=== PATIENT | female | born 1980 | race Two or more races ===

== ENCOUNTER 2018-01-08 13:16 | Inpatient (IN) | payer OTHER ==
[~2018-01-08] VITALS: Ht 167.6 cm; Wt 86.2 kg
[2018-01-29] MEDS ORDERED: PRENATAL TABLE1 EAC1 PO (00:39)
== END 2018-01-31 13:14 | DRG 775 ==
LOC: OB/GYN 01-28 13:15 → LDR 01-29 00:32 → OB/GYN 01-29 02:34
PROC: 10E0XZZ Delivery of Products of Conception, External Approach (ICD-10-PCS; principal; 2018-01-29)
PROC: 0HQ9XZZ Repair Perineum Skin, External Approach (ICD-10-PCS; 2018-01-29)
PROC: 10907ZC Drainage of Amniotic Fluid, Therapeutic from Products of Conception, Via Natural or Artificial Opening (ICD-10-PCS; 2018-01-29)
PROC: 4A1HXCZ Monitoring of Products of Conception, Cardiac Rate, External Approach (ICD-10-PCS; 2018-01-29)
DX: O48.0 Post-term pregnancy (principal); O70.0 First degree perineal laceration during delivery; Z3A.40 40 weeks gestation of pregnancy; Z37.0 Single live birth